=== PATIENT | female | born 1990 | race Caucasian/White ===

== ENCOUNTER 2018-09-15 17:05 | Emergency (ER) | payer OTHER ==
[~2018-09-15] VITALS: Ht 152.4 cm; Wt 93.0 kg
[2018-09-15 17:26] VITALS: Ht 152.4 cm; Wt 93.0 kg
[2018-09-15 18:41] LABS: BASOPHIL % 0.4 % (0-2); PLATELET COUNT 277 x10^3mcL (130-400); RED CELL DISTRIBUTION WIDTH 13.5 % (11.5-14.5)
[2018-09-15 20:33] VITALS: BP 111/68
== END 2018-09-15 20:33 | disposition home or self-care (01) ==
LOC: ED 17:05
PROVIDERS: Emergency Medicine
DX: N83.202 Unspecified ovarian cyst, left side (principal); N83.201 Unspecified ovarian cyst, right side; Z88.8 Allergy status to other drugs, medicaments and biological substances; Z88.5 Allergy status to narcotic agent; Z88.2 Allergy status to sulfonamides
CPT/HCPCS: 36415; J1885